=== PATIENT | female | born 1970 | race Caucasian/White ===

== ENCOUNTER 2017-04-18 21:58 | Emergency (ER) | payer BC ==
[2017-04-18 22:50] VITALS: BP 168/99
== END 2017-04-18 22:50 | disposition home or self-care (01) ==
LOC: ED 21:58
DX: G51.0 Bell's palsy (principal)
CPT/HCPCS: J7512

== ENCOUNTER 2017-04-28 04:30 | Emergency (ER) | payer BC ==
[~2017-04-28] VITALS: Ht 165.1 cm; Wt 113.4 kg
[2017-04-28 04:38] VITALS: Ht 165.1 cm; Wt 113.4 kg
[2017-04-28 07:27] VITALS: BP 170/84
== END 2017-04-28 07:27 | disposition home or self-care (01) ==
LOC: ED 04:30
DX: G50.0 Trigeminal neuralgia (principal); Z98.51 Tubal ligation status
CPT/HCPCS: J2270; Q0162